=== PATIENT | male | born 1995 | race African-American/Black ===

== ENCOUNTER 2017-05-23 15:27 | Emergency (ER) | payer OTHER ==
[~2017-05-23] VITALS: Ht 180.3 cm; Wt 55.0 kg
[~2017-05-23 15:27] MED LIST: ACET-3161; IBUP-2029
[2017-05-23] MEDS ORDERED: CEFTRIAXONE SODIUM 250 MG/VIAL IM ONE (18:30)
[2017-05-23] MEDS ORDERED: DIPHENHYDRAMINE 25MG CAPSULE PO ONE (18:30)
[2017-05-23] MEDS ORDERED: AZITHROMYCIN 500 MG TABLET PO ONE (18:30)
[2017-05-23 18:35] LABS: CLARITY URINE CLEAR (CLEAR); COLOR URINE YELLOW (YELLOW); GLUCOSE URINE NEGATIVE (NEGATIVE); KETONES URINE TRACE (NEGATIVE); LEUKOCYTE ESTERASE URINE 1+ (NEGATIVE); NITRITE URINE NEGATIVE (NEGATIVE); OCCULT BLOOD URINE NEGATIVE (NEGATIVE); PH URINE 5.5 (4.5-8.0); PROTEIN URINE NEGATIVE (NEGATIVE); SPECIFIC GRAVITY URINE 1.027 (1.005-1.030)
[2017-05-23 19:33] VITALS: BP 130/75
== END 2017-05-23 19:35 | disposition home or self-care (01) ==
LOC: ER 16:39
DX: R10.30 Lower abdominal pain, unspecified (principal); R30.0 Dysuria; R36.9 Urethral discharge, unspecified; J45.909 Unspecified asthma, uncomplicated; Z88.1 Allergy status to other antibiotic agents
CPT/HCPCS: 81001; 96372; 99283; J0696; Q0163

== ENCOUNTER 2017-09-16 09:18 | Emergency (ER) | payer OTHER ==
[~2017-09-16] VITALS: Ht 180.3 cm; Wt 62.0 kg
[2017-09-16 09:53] VITALS: BP 131/70
[2017-09-16 10:23] LABS: CLARITY URINE CLEAR (CLEAR); COLOR URINE YELLOW (YELLOW); GLUCOSE URINE NEGATIVE (NEGATIVE); KETONES URINE TRACE (NEGATIVE); LEUKOCYTE ESTERASE URINE 2+ (NEGATIVE); NITRITE URINE NEGATIVE (NEGATIVE); OCCULT BLOOD URINE NEGATIVE (NEGATIVE); PROTEIN URINE NEGATIVE (NEGATIVE); SPECIFIC GRAVITY URINE 1.029 (1.005-1.030)
== END 2017-09-16 11:09 | disposition home or self-care (01) ==
LOC: ER 10:10
DX: N39.0 Urinary tract infection, site not specified (principal); J45.909 Unspecified asthma, uncomplicated; Z88.1 Allergy status to other antibiotic agents
CPT/HCPCS: 81001; 87086; 99284

== ENCOUNTER 2018-01-02 06:50 | Emergency (ER) | payer OTHER ==
[~2018-01-02] VITALS: Ht 180.3 cm; Wt 57.0 kg
[2018-01-02] MEDS ORDERED: KETOROLAC 30MG/ML VIAL IM ONE (08:45)
[2018-01-02] MEDS ORDERED: IBUPROFEN 600MG TABLET PO ONE (08:45)
[2018-01-02] MEDS ORDERED: METOCLOPRAMIDE HCL 10MG TABLET PO ONE (08:45)
[2018-01-02 13:00] VITALS: BP 137/89
== END 2018-01-02 13:00 | disposition home or self-care (01) ==
LOC: ER 07:31
DX: H60.91 Unspecified otitis externa, right ear (principal); R51 Headache; M54.5 Low back pain; J45.909 Unspecified asthma, uncomplicated; Z88.0 Allergy status to penicillin
CPT/HCPCS: 96372; 99283; J1885; Z7610; J8597

== ENCOUNTER 2018-05-16 10:14 | Emergency (ER) | payer OTHER ==
[~2018-05-16] VITALS: Ht 180.3 cm; Wt 57.0 kg
[2018-05-16] MEDS ORDERED: IBUPROFEN 600MG TABLET PO STA (11:05)
[2018-05-16 11:26] LABS: BASOPHILS % 0.7 % (0.0-2.0); EOSINOPHILS % 4.5 % (0.0-5.0); HEMATOCRIT. 38.3 % (42.0-52.0); HEMOGLOBIN. 13.6 g/dL (14.0-18.0); LYMPHOCYTES % 44.6 % (20.0-50.0); MEAN CORPUSCULAR VOLUME 90.2 fL (80.0-94.0); MEAN PLATELET VOLUME 7.8 fl (7.4-10.4); MONOCYTES % 5.6 % (2.0-8.0); NEUTROPHILS % 44.6 % (40.0-76.0); PLATELET 203 x1000/uL (130-400); RED BLOOD CELL COUNT 4.24 mill/uL (4.7-6.1); RED CELL DISTRIBUTION WIDTH 12.1 % (11.6-14.6)
[2018-05-16 11:33] LABS: CHLORIDE 106 mEq/L (98-107)
[2018-05-16 11:50] VITALS: BP 129/77
== END 2018-05-16 12:25 | disposition home or self-care (01) ==
LOC: ER 10:34
DX: R07.9 Chest pain, unspecified (principal); J45.909 Unspecified asthma, uncomplicated
CPT/HCPCS: 36415; 71045; 80048; 85025; 93005; 99285

== ENCOUNTER 2018-08-20 09:33 | Emergency (ER) | payer OTHER ==
[~2018-08-20] VITALS: Ht 177.8 cm; Wt 55.0 kg
[2018-08-20] MEDS ORDERED: MAGNESIUM/ALUMINUM HYDROXIDE/SIMETHICONE 30ML UDC PO ONE (10:15)
[2018-08-20 10:48] VITALS: BP 116/63
== END 2018-08-20 10:49 | disposition home or self-care (01) ==
LOC: ER 10:28
DX: K21.9 Gastro-esophageal reflux disease without esophagitis (principal); J45.909 Unspecified asthma, uncomplicated; Z88.0 Allergy status to penicillin
CPT/HCPCS: 71045; 93005; 99284

== ENCOUNTER 2021-10-20 11:07 | Emergency (ER) | payer SELFPAY ==
[~2021-10-20] VITALS: Ht 177.8 cm; Wt 55.0 kg
[2021-10-20 11:14] VITALS: BP 149/87
[2021-10-20] MEDS ORDERED: P20 MT (11:49)
[2021-10-20] MEDS ORDERED: ALBU6.7H9 INH (11:49)
== END 2021-10-20 12:10 | disposition home or self-care (01) ==
LOC: ER 11:07
DX: J45.909 Unspecified asthma, uncomplicated (principal); Z20.822 Contact with and (suspected) exposure to COVID-19; Z88.0 Allergy status to penicillin
CPT/HCPCS: 99283; C9803; U0003; U0005